=== PATIENT | male | born 1980 | race Hispanic/Latino ===

== ENCOUNTER 2019-01-04 10:43 | Emergency (ER) | payer SELFPAY ==
[~2019-01-04] VITALS: Ht 160 cm; Wt 68.0 kg
[2019-01-04] MEDS ORDERED: ZITHROMAX250 MG PO (11:11)
[2019-01-04] MEDS ORDERED: CLEOCIN150 MG PO (11:11)
[2019-01-04] MEDS ORDERED: BACTROBAN TOP (11:11)
[2019-01-04 11:23] VITALS: BP 128/85
== END 2019-01-04 11:41 | disposition home or self-care (01) | DRG 690 ==
LOC: ED 10:43
DX: N34.2 Other urethritis (principal); L73.9 Follicular disorder, unspecified